=== PATIENT | female | born 1950 | race Caucasian/White ===

== ENCOUNTER 2016-09-18 12:30 | Day surgery (SDC) | payer BC, MEDICARE ==
--- NOTE | ~2016-09-18 | OP ---
Record Of Operation [facility] [address] [place]. [address] NAME: BRODERICK DELCID : 50 STATUS : [facility]#: [id number] AGE: 66 ADM/REG DATE : 09/18/16 MR#: [id number] REPORT SERV DATE: 09/18/16 DICTATED BY: MADELIN WILHELM DATE: 09/18/16 REPORT STATUS : Draft TRANSCRIBED BY: MODL DATE: 09/18/16 DATE OF PROCEDURE: 09/18/2016 PREOPERATIVE DIAGNOSES: Abdominal and flank pain, right renal calculi. POSTOPERATIVE DIAGNOSES: Abdominal and flank pain, right renal calculi. PROCEDURE PERFORMED: Cystoscopy, right retrograde pyelogram, right rigid ureteroscopy, right flexible ureterorenoscopy, removal of multiple kidney stones, and stents placement. SURGEON: Madelin Wilhelm M.D. ANESTHESIA: General. ESTIMATED BLOOD LOSS: 5 mL. INDICATIONS: This is a 66-year-old white female with abdominal and flank pain. CTs have shown small nonobstructing renal calculi. An IVP has shown a possible distal right ureteral stone. We are planning endoscopic management. Risks of infection, bleeding, failure, worsening of her pain, etc., were reviewed. DESCRIPTION OF PROCEDURE: The patient was taken to the operating room and underwent a general anesthetic. She was placed in the lithotomy position on the table, and her external genitalia were sterilely prepped and draped. The 22-Cymro cystoscope sheath with 30-degree lens was inserted under direct vision per urethra with the aid of the video monitor. The bladder was inspected, visibility was reasonably good. She had a significant cystocele. There were no mass lesions or irritative changes in the bladder. There were no stones in the bladder. Single normal-looking orifices were seen bilaterally. With a bit of difficulty, the right orifice was cannulated with a 5-Cymro open-ended catheter. A retrograde pyelogram was obtained that I thought showed a normal ureter and a normal relatively petite looking renal collecting system. No specific stones or filling defects were noted. X-ray imaging was somewhat suboptimal due the patient's large size. An 0.038 guidewire was then advanced up into the kidney under fluoroscopic guidance and the distal ureter was dilated to 11-Cymro using the access sheath with obturator. The rigid ureteroscope was then advanced up into the ureter without difficulty and no stones were encountered in the distal ureter from roughly at the level of the iliac vessels distally. The ureteral access sheath with obturator was reinserted over the guidewire and advanced into the more proximal ureter. A second guidewire was placed into the kidney under fluoroscopic guidance and the sheath and obturator were reinserted over one of the two guidewires leaving the other in place as a safety wire. The flexible ureteroscope was then advanced through the access sheath and up into the proximal ureter and on up into the collecting system of the kidney. There were four relatively small stones in the upper pole calyx and a couple of small stones in the lower pole system. No other significant stones were noted. We removed four stones from the upper pole calyx. These were sent for analysis. The upper pole calyx was clean of stones at that point, the remainder of the kidney was reinspected and there was a small adherent stone to a lower pole calyceal wall Record Of [address] [address] NAME: BRODERICK DELCID : 50 STATUS : [facility] PAT#: [id number] AGE: 66 ADM/REG DATE : 09/18/16 MR#: [id number] REPORT SERV DATE: 09/18/16 DICTATED BY: MADELIN WILHELM DATE: 09/18/16 REPORT STATUS : Draft TRANSCRIBED BY: JAYA DATE: 09/18/16 that we could not quite reach, this was left intact and no other stones were left remaining in the collecting system of the kidney. The scope was then withdrawn under direct vision down through the ureter with no new findings. The cystoscope was reinserted over the guidewire and a 5-Cymro x 26 cm Polaris stent was advanced over the guidewire such that the proximal end of the stent was observed to coil in the pelvis of the kidney under fluoroscopic guidance and the distal end of the stent was visually observed to coil in the bladder following removal of the guidewire. The stent was left connected to a string dangle, which was taped to the patient's thigh. The bladder was drained. All endoscopic apparatus was removed and the patient was taken to recovery in stable condition. ANTONY/JAYA Madelin Wilhelm M.D. / [id number] CC: Ramesh Duran SUSAN
[~2016-09-18 12:30] MED LIST: ACET500CAP PO; ADALAT CC30 MG PO; AMB10 PO; ARMOUR THYRO60 MG PO; ARMOUR THYROID PO; ASAB PO; C1 PO; C5 PO; CALTRAT600 PO; CELEXA20 PO; CELEXA40 MG PO; COREG6 PO; COUMADIN6 MG PO; CYANO1000T PO; DHEA50 M1 PO; DITRO5 PO; ENDOMETRIN100 MG VA; FISH-EPA1000 MG PO; GLUCCHONDR PO; GLUCOSAMINE1 TA2 PO; INSNOV7030 SC; INSNOVN SC; K-PHO1 OR; KLONO1 PO; L40 PO; L80 PO; LISINOPRIL40 MG PO; LORTAB10 PO; MAGNESIUM; MEVACOR40 MG PO; NAP500 PO; NEUR600 PO; NORV10 PO; NORV5 PO; NOVOLOG SC; NOVOLOGMIX SC; NXL3 PO; Novolin R IV; OS500+D PO; P10 PO; PLAVIX PO; PR12.5 PO; PRILO PO; PRIN20 PO; PROMETRIUM200 MG PO; PROTONIX PO; SEROQUEL50 MG PO; SPIRO50 PO; STERAPRED DS10 MG; SYN.05 PO; TRANDAT100 PO; VITAMIN B-121000 MC1 PO; VITAMIN D1000 UNI1 PO; VITD PO; XANAX1 MG PO; ZOCOR5 MG PO; ZOL50 PO; [UNRECOGNIZED DRUG - OTHER] IJ; [UNRECOGNIZED DRUG - REMARK]
[2016-09-18 13:01] LABS: BASOPHILS 0.1 %; BASOPHILS ABSOLUTE 0.01 10/3/uL (0.0-0.16); EOSINOPHILS 2.7 %; EOSINOPHILS ABSOLUTE 0.38 10/3/uL (0.0-0.53); HEMOGLOBIN 15.2 g/dL (12.0-16.0); IMMATURE GRANULOCYTES 0.3 %; IMMATURE GRANULOCYTES ABSOLUTE 0.04 10/3/uL (0.0-0.11); LYMPHOCYTES 2.8 %; MEAN CORPUS HGB CONC 34.2 g/dL (32.0-36.0); MEAN CORPUSCULAR HEMOGLOB 27.3 pg (26.0-34.0); MEAN CORPUSCULAR VOLUME 79.9 fL (80-100); MEAN PLATELET VOLUME 11.6 fL (9.2-13.0); MONOCYTES 3.8 %; MONOCYTES ABSOLUTE 0.54 10/3/uL (0.21-1.20); NEUTROPHILS 90.3 %; NEUTROPHILS ABSOLUTE 12.85 10/3/uL (2.02-8.40); PLATELET COUNT 162 10/3/uL (150-400); RBC DISTRIBUTION WIDTH 14.2 % (12.0-16.0); RED CELL COUNT 5.57 10/6/uL (4.0-5.6)
[2016-09-18 13:03] LABS: HEMATOCRIT 44.5 % (36.0-48.0); MANUAL DIFF NO %; WHITE BLOOD CELLS 14.2 10/3/uL (4.5-10.5)
[2016-09-18 13:13] LABS: BUN (BLOOD UREA NITROGEN) 21 MG/DL (6-23); CALCIUM, SERUM 9.7 MG/DL (8.5-10.4); CHLORIDE, SERUM 106 MMOL/L (96-112); CO2 (CARBON DIOXIDE) 26 MMOL/L (24-34); CREATININE 1.18 MG/DL (0.55-1.02); GFR AFRICAN AMERICAN 56 ML/MIN (>=60); GFR NON AFRICAN AMERICAN 48 ML/MIN (>=60); GLUCOSE, SERUM 181 MG/DL (60-99); POTASSIUM, SERUM 4.3 MMOL/L (3.5-5.3); SODIUM, SERUM 140 MMOL/L (135-148)
[2016-09-18 13:19] LABS: INTERNATIONAL NORMAL RATI 1.1 UNITS (-); PARTIAL THROMBO TIME 26.4 SEC (22.5-37.2); PROTIME (NOT ORD) 14.3 SEC (12.0-14.5)
[2016-09-18] MEDS ORDERED: FARXIGA5 PO (15:49)
[2016-09-18] MEDS ORDERED: BYDUREON2 MG SQ (15:51)
[2016-09-24 10:02] LABS: STONE COMPOSITION TWO DNR (())
== END 2016-09-18 21:34 | disposition home or self-care (01) ==
LOC: SDC 12:30
PROVIDERS: Urology
PROC: 0T768DZ Dilation of Right Ureter with Intraluminal Device, Via Natural or Artificial Opening Endoscopic (ICD-10-PCS; 2016-09-18)
PROC: 0TC68ZZ Extirpation of Matter from Right Ureter, Via Natural or Artificial Opening Endoscopic (ICD-10-PCS; principal; 2016-09-18 16:00)
DX: N20.0 Calculus of kidney (principal); I10 Essential (primary) hypertension; I69.954 Hemiplegia and hemiparesis following unspecified cerebrovascular disease affecting left non-dominant side; E78.00 Pure hypercholesterolemia, unspecified; E03.9 Hypothyroidism, unspecified; E11.40 Type 2 diabetes mellitus with diabetic neuropathy, unspecified; K21.9 Gastro-esophageal reflux disease without esophagitis; D64.9 Anemia, unspecified; Z88.2 Allergy status to sulfonamides; Z87.01 Personal history of pneumonia (recurrent); Z79.899 Other long term (current) drug therapy
CPT/HCPCS: 71020; 74420; 80048; 82365; 82962; 85025; 85610; 85730; 93005; A9270-GY; C1758; C1894; C2617; J0330; J1170; J1885; J2175; J2250; J2370; J2405; J2710; J3010; Q9967